=== PATIENT | female | born 1990 | race Caucasian/White ===

== ENCOUNTER → 2021-08-23 | Outpatient (CLI) | payer BC ==
[~2021-08-23] MED LIST: LEXAPRO20 MG PO; MOTRIN 600600 MG/TAB PO; PERCOCET 325 MG1 TA2 PO; SENOKOT S 50 MG1 TAB PO; SYNTHROID0.05 MG/TA PO
== END ==
LOC: DIA.ED 00:31
DX: O24.419 Gestational diabetes mellitus in pregnancy, unspecified control (principal)
CPT/HCPCS: G0108

== ENCOUNTER 2021-09-22 10:33 | Inpatient (IN) | payer BC ==
[~2021-09-22] VITALS: Ht 162.6 cm; Wt 93.6 kg
[2021-09-24] VITALS (41 sets, daily range): BP systolic 98–132; BP diastolic 53–78; PULSE 60–88; TEMP 97.5–98.6
--- NOTE | 2021-09-24 06:45 | NUR ---
0635 PT AMBULATORY ONTO UNIT WITH SPOUSE TO LR4. CHANGED INTO CLEAN GOWN. FHR MONITOR/TOCO APPLIED. VITAL SIGNS WNL. PT AFEBRILE. PT DENIES VAGINAL BLEEDING, LEAKING OF FLUID, REGULAR CONTRACTIONS, OR DECREASED MOVEMENT. PT REPORTS BLOOD SUGAR OF 88 AT 0530. ASSESSMENTS DONE 0650 CONSENTS SIGNED 0655 IV STARTED IN LEFT HAND. NO REDNESS/DRAINAGE/EDEMA NOTED. 0705 SVE BY THIS RN /-3. INTACT. 0730 PITOCIN STARTED PER PROTOCOL. PLAN OF CARE DISCUSSED. PT VERBALIZES UNDERSTANDING. PT ORIENTED TO ROOM. CALL LIGHT WITHIN REACH.
[2021-09-24] MEDS ORDERED: PRENATAL TABLET PO (06:50)
[2021-09-24] MEDS ORDERED: LEVEMIR FLEX100 U/ML (06:51)
[2021-09-24 08:20] LABS: BASO % 0.4 % (0.0-2.0); EOS % 0.5 % (0.0-4.0); GRAN # 5.1 K/mm3 (1.4-6.5); GRAN % 69.2 % (42.2-75.2); HEMOGLOBIN 11.4 g/dl (12.5-16.0); LYMPH # 1.7 K/mm3 (1.2-3.4); LYMPH % 22.6 % (20.0-51.0); MEAN CELL VOLUME 82 fl (80.0-100.0); MEAN CORPUSCULAR HEMOGLOBIN 28 pg (27-31); MEAN CORPUSCULAR HGB CONC 33 g/dl (33.0-37.0); MEAN PLATELET VOLUME 10.4 fl (7.4-10.4); MONO # 0.5 K/mm3 (0.1-0.6); MONO % 6.8 % (1.7-9.3); PLATELET COUNT 219 K/mm3 (130-400); RED BLOOD COUNT 4.14 M/mm3 (4.10-5.30); REDCELL DISTRIBUTION WIDTH-CV 14.1 % (11.5-14.5)
[2021-09-24 08:23] LABS: HEMATOCRIT 34.1 % (37.0-47.0)
--- NOTE | 2021-09-24 09:50 | NUR ---
0530 PT REPORTED BLOOD SUGAR 88 0730 PT REPORTED BLOOD SUGAR OF 120 0945 PT REPORTED BLOOD SUGAR OF 86
--- NOTE | 2021-09-24 11:45 | NUR ---
1145 PT BLOOD SUGAR 80.
--- NOTE | 2021-09-24 12:10 | NUR ---
Mary Beth AGUILAR CALLED FOR EPIDURAL PLACEMENT
--- NOTE | 2021-09-24 13:00 | NUR ---
1245 THIS RN AT PT BEDSIDE 1247 PT SAT ON BEDSIDE FOR EPIDURAL PLACEMENT. EPIDURAL PLACED. 1256 TEST DOSE GIVEN. PT LAID BACK IN BED. SEMI FOWLERS. PERICARE DONE. CLEAN TOWEL PLACED. PT TOLERATES WELL. SAFETY PRECAUTIONS AND PLAN OF CARE DISCUSSED. PT VERBALIZES UNDERSTANDING. CALL LIGHT WITHIN REACH.
--- NOTE | 2021-09-24 13:45 | NUR ---
1345 PT REPORTS BLOOD SUGAR IS 91
--- NOTE | 2021-09-24 16:47 | NUR ---
1425 PT REPOSITIONED TO [facility] WL 1500 PT REPOSITIONED TO [facility] WR 1530 SVE by this RN /+1. 1531 Dr Willingham called with update. 1540 Roles here for delivery. 1543 Pt begins pushing with contractions. 1548 Spontaneous vaginal delivery of viable male . bulb suctioned and stimulated. placed on mother's abdomen. Cord clamped by Dr Willingham and cut by FOB. Kaye Liriano takes over care of . 1554 Spontaneous delivery of placenta. Pitocin Bolus started per protocol. Fundal massage done by Dr Willingham. Moderate amt of bleeding noted. Methergine ordered by Dr Willingham and given by this RN. 2nd degree perineal laceration noted and repaired by Dr. Willingham. Fundal massage done. Small amt of bleeding noted. Firm/midline. Pericare done. Clean pad placed. Safety precautions and plan of care discussed. Pt verbalizes understanding. Call light within reach.
[2021-09-25] VITALS: BP 100/56; PULSE 64; TEMP 97.7
[2021-09-25 05:40] VITALS: BP 98/64; PULSE 65; TEMP 97.9
--- NOTE | 2021-09-25 06:30 | NUR ---
0630-Patient reports fasting BG 110
[2021-09-25 07:18] VITALS: BP 108/69; PULSE 64; TEMP 97.8
--- NOTE | 2021-09-25 09:45 | NUR ---
0945-Patient reports 2 hour PP BG 121
[2021-09-25 11:45] VITALS: BP 113/66; PULSE 78; TEMP 98.6
--- NOTE | 2021-09-25 13:30 | NUR ---
1330-2 HOUR PP BG 98
[2021-09-25 16:32] VITALS: BP 104/64; PULSE 76; TEMP 99
[2021-09-25 19:30] VITALS: BP 93/55; PULSE 70; TEMP 98.3
[2021-09-26 08:40] VITALS: BP 120/72; PULSE 62; TEMP 97.8
--- NOTE | 2021-09-26 09:10 | NUR ---
PT REPORTED BLOOD SUGAR OF 95
[2021-09-26] MEDS ORDERED: IBU800 M1 PO (09:26)
== END 2021-09-26 11:50 | disposition home or self-care (01) | DRG 807 ==
LOC: OB 09-24 06:30 → LDR 09-24 06:30 → OB 09-24 18:15
PROVIDERS: ADMIT Obstetrics & Gynecology
PROC: 10E0XZZ Delivery of Products of Conception, External Approach (ICD-10-PCS; principal; 2021-09-24)
PROC: 0KQM0ZZ Repair Perineum Muscle, Open Approach (ICD-10-PCS; 2021-09-24)
PROC: 10907ZC Drainage of Amniotic Fluid, Therapeutic from Products of Conception, Via Natural or Artificial Opening (ICD-10-PCS; 2021-09-24)
PROC: 3E033VJ Introduction of Other Hormone into Peripheral Vein, Percutaneous Approach (ICD-10-PCS; 2021-09-24)
DX: O24.424 Gestational diabetes mellitus in childbirth, insulin controlled (principal); Z37.0 Single live birth; O99.344 Other mental disorders complicating childbirth; F32.A Depression, unspecified; O99.284 Endocrine, nutritional and metabolic diseases complicating childbirth; E03.9 Hypothyroidism, unspecified; O99.824 Streptococcus B carrier state complicating childbirth; O70.1 Second degree perineal laceration during delivery; O99.214 Obesity complicating childbirth; Z3A.39 39 weeks gestation of pregnancy
CPT/HCPCS: J2210; J2540; J2590; J2795; J7030

== ENCOUNTER → 2021-10-05 | Outpatient (CLI) | payer BC ==
[~2021-10-05] MED LIST changes: +IBU800 M1 PO; +LEVEMIR FLEX100 U/ML; +PRENATAL TABLET PO
--- NOTE | 2021-10-05 13:49 | NUR ---
Pt, Lolita Hatch, presents for consult with 12 day old baby boy, Nikki Hatch for evaluation due to sore right nipple. Nikki was born on [birth year] and weighed 8# 4.3oz (3750 gms). His weight at his doctor appointments has been satisfactory, most recently 7# 15oz three days prior. Pt reports he has qs voids and yellow, seedy stools. He nurses 8+ times daily and is starting to sleep a little better at noc. Today Nikki weighs 8#3.2oz (3720 gms). He has two stools while in consult. Pt points to area of soreness on right nipple, small area of irritation noted. Pt works with placing Nikki in the usual fashion, using cross cradle. She is jumpy and tense with latch, LC breaks the latch and advises pt on holding baby's jaw open wider with latching. This does not improve the pain either. LC notes a seperation wound about 4mm long at the 4 o'clock position. Nipple shield attempted but Nikki would not latch. LC examines Nikki's mouth with gloved finger and palpates a high anterior palate that may be causing the nipple to turn up and not get elongated for proper placement against posterior palate. There is also a tongue tether palpated with sweeping under his tongue. After Nikki has a weight gain of16 gms from right and 36 from left. This is likely a poor representation as he was annoyed with evaluation of the right side during feeding and his weight gain reflects better intake. RX for Hernandez's nipple cream requested and received, sent to pharmacy. Instructions for use provided. Impression: High anterior palate, tongue tether. POC: Use NNC as directed. Consider taking a 24-48 hour respite from on the right breast by pumping. Continue BF on left and provide about 1.5oz EBM each feeding. Consider having oral tether looked at by dentist providing such service. F/U: Pt to contact this LC next week to update healing and feeding plan. Questions invited and answered.
== END ==
LOC: LAC 11:27
DX: Z39.1 Encounter for care and examination of lactating mother (principal)